=== PATIENT | male | born 1955 | race Caucasian/White ===

== ENCOUNTER 2017-10-28 15:46 | Emergency (ER) | payer OTHER, BC ==
[~2017-10-28] VITALS: Ht 188 cm; Wt 78.9 kg
[~2017-10-28 15:46] MED LIST: NAPROSYN500 MG PO; XANAX 0.5 MG0.5 MG PO
[2017-10-28] MEDS ORDERED: IBUPROFEN 800800 MG PO (16:19)
== END 2017-10-28 17:03 | disposition home or self-care (01) ==
LOC: ER 15:46
DX: S83.91XA Sprain of unspecified site of right knee, initial encounter (principal); S80.11XA Contusion of right lower leg, initial encounter; W18.09XA Striking against other object with subsequent fall, initial encounter; Y93.89 Activity, other specified; Y92.89 Other specified places as the place of occurrence of the external cause; Y99.8 Other external cause status

== ENCOUNTER 2020-08-24 09:24 | Emergency (ER) | payer OTHER, BC ==
[~2020-08-24] VITALS: Ht 190.5 cm; Wt 77.1 kg
[~2020-08-24 09:24] MED LIST changes: +IBUPROFEN 800800 MG PO
[2020-08-24 09:28] VITALS: BP 141/80
[2020-08-24] MEDS ORDERED: KEFLEX500 M1 PO (11:01)
== END 2020-08-24 11:01 | disposition home or self-care (01) ==
LOC: ER 09:24
DX: S60.022A Contusion of left index finger without damage to nail, initial encounter (principal); L08.9 Local infection of the skin and subcutaneous tissue, unspecified; F41.9 Anxiety disorder, unspecified; Z91.048 Other nonmedicinal substance allergy status; Z79.899 Other long term (current) drug therapy; W23.0XXA Caught, crushed, jammed, or pinched between moving objects, initial encounter; Y93.89 Activity, other specified; Y92.89 Other specified places as the place of occurrence of the external cause; Y99.8 Other external cause status